=== PATIENT | female | born 1985 ===

== ENCOUNTER 2019-11-28 12:25 | Outpatient (REF) | payer OTHER, SELFPAY | END 2019-11-28 12:26 | disposition home or self-care (01) | LOC: HO.LAB 12:25 | PROVIDERS: Visit Provider Internal Medicine | DX: Z20.828 Contact with and (suspected) exposure to other viral communicable diseases (principal) | CPT/HCPCS: 87635 ==

== ENCOUNTER 2019-12-02 11:32 | Outpatient (REF) | payer OTHER, SELFPAY | END 2019-12-02 11:33 | disposition home or self-care (01) | LOC: HO.LAB 11:32 | PROVIDERS: Visit Provider Internal Medicine | DX: Z20.828 Contact with and (suspected) exposure to other viral communicable diseases (principal) | CPT/HCPCS: 87635 ==

== ENCOUNTER 2020-02-22 16:46 | Outpatient (REF) | payer OTHER, SELFPAY | END 2020-02-22 16:47 | disposition home or self-care (01) | LOC: HO.LAB 16:46 | PROVIDERS: Visit Provider Internal Medicine | DX: Z20.822 Contact with and (suspected) exposure to COVID-19 (principal) | CPT/HCPCS: 36415; C9803; U0003 ==

== ENCOUNTER 2020-05-17 14:54 | Outpatient (REF) | payer OTHER, SELFPAY ==
[2020-05-17 15:59] LABS: COVID-19 Test Negative (Negative); IDNOW Serial# 55D5AD1C
== END 2020-05-17 14:55 | disposition home or self-care (01) ==
LOC: HO.LAB 14:54
PROVIDERS: Visit Provider Internal Medicine
DX: Z20.822 Contact with and (suspected) exposure to COVID-19 (principal)
CPT/HCPCS: 36415; 87635; C9803

== ENCOUNTER 2021-02-08 12:07 | Outpatient (REF) | payer OTHER, SELFPAY ==
[2021-02-08 13:14] LABS: Binax Internal Control QC Valid; Binax Lot number: 9864; Binax Now Covid-19 Ag Negative (Negative)
== END 2021-02-08 12:08 | disposition home or self-care (01) ==
LOC: HO.LAB 12:07
PROVIDERS: Visit Provider Internal Medicine
DX: Z20.822 Contact with and (suspected) exposure to COVID-19 (principal)
CPT/HCPCS: 36415; C9803

== ENCOUNTER 2023-08-10 20:33 | Emergency (ER) | payer MEDICAID, SELFPAY ==
[2023-08-10 21:23] VITALS: BP 120/82; PULSE 67; RESP 16; TEMP 36.9; O2SAT 99; BMI 29.2
[2023-08-10 21:47] LABS: IDNOW Serial# 08D9AD1C; Strep A Nucleic Acid Negative (Negative)
--- NOTE | 2023-08-11 00:59 | ED.DENTAL ---
HPI - Dental/Oral General Chief complaint: Dental/Oral Stated complaint: dental pain Time Seen by Provider: 08/11/23 00:59 Source: patient Mode of arrival: ambulatory Limitations: no limitations History of Present Illness ED Provider: leslie JOSEPH Narrative: Patient is status post left lower molar removal 3 days ago comes here for pain radiating to the throat and the head no fever no chills Related Data Previous Rx's ?Medication ?Instructions ?Recorded amoxicillin 875 mg-potassium 1 tab PO BID #20 tabs 08/11/23 clavulanate 125 mg tablet ibuprofen 600 mg tablet 600 mg PO Q6H PRN fever or pain 08/11/23 #30 tabs Allergies Allergy/AdvReac Type Severity Reaction Status Date / Time No Known Allergies Allergy Verified 08/10/23 21:27 Review of Systems Review of Systems: Yes all other systems are reviewed and are negative [facility] Social History Social History Advance Directives: No Advance Directives Information Provided: No Physical Exam Vital Signs: Vital Signs: Last Vital Signs Temp 99 F 08/11/23 01:27 Pulse 58 08/11/23 01:27 Resp 16 08/11/23 01:27 BP 133/94 H 08/11/23 01:27 Pulse Ox 100 08/11/23 01:27 O2 Del Method Room Air 08/11/23 01:27 BMI result Body Mass Index 29.2 HEENT: Head: Yes normal to inspection Ears: hearing grossly normal bilaterally, TM's normal bilaterally and EAC's normal Face and sinus: Yes normal facial exam Mouth: Normal oral and palatal mucosa present and oropharynx normal Teeth image: 1. Partial tooth 18. Removed with still part of the tooth left Medications Administered Discontinued Medications Generic Name Dose Route Start Last Admin Trade Name Freq PRN Reason Stop Dose Admin Amoxicillin/Clavulanate Potassium 875 mg 08/11/23 01:13 08/11/23 01:24 Amoxicillin/Potassium Clav 875 Mg Tablet PO 08/11/23 01:14 875 mg ONCE ONE Administration Ibuprofen 600 mg 08/11/23 01:13 08/11/23 01:24 Ibuprofen 600 Mg Tablet PO 08/11/23 01:14 600 mg ONCE ONE Administration Medical Decision Making Medical Decision Making [facility] Narrative: Patient with partial tooth 18. Removal causing the pain give course of antibiotic advised to follow up dentist for full removal of the tooth Lab Data Labs: Lab Results 08/10/23 Range/Units 21:32 S. pyogenes GrpA VINNIE Negative (Negative) Discharge Plan Discharge Clinical Impression: Dental caries Patient Disposition: Home, Self-Care Instructions: Toothache (ED) Additional Instructions: Take antibiotics and pain medicine as prescribed Follow up with your dentist Prescriptions: New ibuprofen 600 mg tablet 600 mg PO Q6H PRN (Reason: fever or pain) Qty: 30 0RF amoxicillin-pot clavulanate 875-125 mg tablet 1 tab PO BID Qty: 20 0RF Interventions: ED Discharge Assessment Last Done: 08/11/23 01:27 Discharge Date/Time: 08/11/23 01:28 Print Language: Cuban
[2023-08-11 01:21] VITALS: BP 133/94; PULSE 58; RESP 16; TEMP 37.2; O2SAT 100
[2023-08-11] MEDS: Amoxicillin/Potassium Clav 875 MG TABLET PO (01:24)
[2023-08-11] MEDS: Ibuprofen 600 MG TABLET PO (01:24)
[2023-08-11 01:27] VITALS: BP 133/94; PULSE 58; RESP 16; TEMP 37.2; O2SAT 100
== END 2023-08-11 01:28 | disposition home or self-care (01) ==
PROVIDERS: Emergency Provider Internal Medicine
DX: K02.9 Dental caries, unspecified (principal)
CPT/HCPCS: 87651; 99283